=== PATIENT | female | born 1995 | race African-American/Black ===

== ENCOUNTER 2016-05-14 01:17 | Emergency (ER) | payer OTHER ==
[~2016-05-14] VITALS: Ht 152.4 cm; Wt 65.0 kg
[2016-05-14 01:18] VITALS: BP 123/57; PULSE 80; RESP 16; TEMP 98.2; O2SAT 98
[2016-05-14] MEDS ORDERED: CLIN1CAP6 PO (01:37)
--- NOTE | 2016-05-14 01:40 | PD ---
HPI Chief Complaint: ENT Complaint Time Seen by Provider: 01:30 Travel History International Travel<30 days: No Contact w/Intl Traveler<30days: No Traveled to known affect area: No History of Present Illness HPI 20-year-old female presents for evaluation of left ear pain. For the past 2 days she has had some congestion and a mild sore throat. Today she developed left ear pain. It is a throbbing pain in her left ureter that is constant. The pain is somewhat relieved with the use [id number] ibuprofen. She denies any ear discharge, recent swimming, recent travel. She has no other complaints at this time. [facility] Social History Alcohol Use: No Tobacco Use: No Allergies-Medications (Allergen,Severity, Reaction): Coded Allergies: Augmentin (Verified Allergy, Unknown, 05/14/16) Reported Meds & Prescriptions Reported Meds & Active Scripts Active No Active Prescriptions or Reported Medications Review of Systems Except as stated in HPI: all other systems reviewed are Neg Physical Exam Narrative GENERAL: Well-developed well-nourished female in no acute distress SKIN: Warm and dry. HEAD: Atraumatic. Normocephalic. EYES: Pupils equal and round. No scleral icterus. No injection or drainage. ENT: No nasal bleeding or discharge. Mucous membranes pink and moist. Left tympanic membrane is bulging, erythematous. Right tympanic membrane appears normal. Mild oral pharyngeal erythema without exudate. NECK: Trachea midline. No JVD. No lymphadenopathy. Neck supple. CARDIOVASCULAR: Regular rate and rhythm. No murmur appreciated. RESPIRATORY: No accessory muscle use. Clear to auscultation. Breath sounds equal bilaterally. Data Data Last Documented VS Vital Signs Date Time Temp Pulse Resp B/P Pulse Ox O2 Delivery O2 Flow Rate FiO2 05/14/16 01:18 98.2 80 16 123/57 98 MDM Medical Decision Making Medical Screen Exam Complete: Yes Emergency Medical Condition: Yes Medical Record Reviewed: Yes Differential Diagnosis Left otitis media, otitis externa, eustachian tube dysfunction, perforated tympanic membrane, mastoiditis, rhinitis, sinusitis, pharyngitis Narrative Course 20-year-old female who has had a mild sore throat and congestion for 2 days presents now with left ear pain. Examination is consistent with left otitis media. The patient has an allergy to penicillin-based medication and therefore she will be discharged with clindamycin. Diagnosis Primary Impression: Left otitis media Qualified Code: H66.002 - Acute suppurative otitis media of left ear without spontaneous rupture of tympanic membrane, recurrence not specified Additional Instructions: Take the antibiotic as prescribed. Take Tylenol or Motrin for discomfort. Stay well hydrated and well-nourished. Return for any emergent medical conditions. Med/Other Pt SpecificInfo: Prescription(s) given Scripts Clindamycin 300 Mg Isn991 Mg PO TID 10 Days Ref 0 Prov:Alexa Sofia MD 05/14/16 Disposition: 01 DISCHARGE HOME Condition: Stable Derek Tan May 14, 2016 01:40
== END 2016-05-14 01:55 | disposition home or self-care (01) ==
LOC: NEPB 01:17
DX: H66.92 Otitis media, unspecified, left ear (principal)
CPT/HCPCS: 99283